=== PATIENT | female | born 1960 | race Caucasian/White ===

== ENCOUNTER 2025-01-25 13:33 | Outpatient (OUT) | payer MEDICARE, SELFPAY ==
--- OUTSIDE RECORDS SUMMARY | 2025-01-11 10:00 | XMS_ITS | Encounter Summary ---
Author Organization [facility] Address [address] [place] [address] Care Team Providers Care Security Consultant Name Role Phone Arturo Lizarraga MD Primary Care Provider [phone] Reason for Visit * Reason Comments Medicare Annual Wellness Visit Subsequen t Encounter Details Date Type Department Care Team (Late st Contact Info) Description 01/11/2025 10:00 AM EDT Office Visit [facility] [address] [facility] [address] [place] [id number] Lynn Brady PA [address] [facility] [address] [place] [address] Medicare annual wellness visit, subsequent (Primary Dx); ACP (advance care planning); Encounter for screening mammogram for malignant neoplasm of breast; Bruxism, sleep-related; Difficulty sleeping; Primary hypertension ; Calculus of gallbladder without cholecystitis without obstruction; Age-related osteoporosis without current pathological fracture ; Equinus contracture of right ankle; Morbid (severe) obesity due to excess calories (CMS-HCC); Vitamin D deficiency; Mild episode of recurrent major depressive disorder ; Hot flashes; Mixed hyperlipidemia ; Post-nasal drainage Social History Tobacco Use Types Packs/Day Years Used Date Smoking Tobacco: Never Smokeless Tobacco: Never Alcohol Use Standard Drinks/Week Comments Not Currently 0 (1 standard drink = 0.6 oz pur e alcohol) PHQ-2 Answer Date Recorded Patient Health Questionnaire-2 Score 4 01/11/2025 Comments Unknown Sex and Gender Information Value Date Recorded Sex Assigned at Not on file Legal Sex Female 8:35 PM EDT Gender Identity Not on file Sexual Orientation Not on file documented as of this encounter Last Filed Vital Signs Vital Sign Reading Time Taken Comments Blood Pressure 124/86 01/11/2025 10:04 AM EDT Pulse 68 01/11/2025 10:04 AM EDT Temperature - - Respiratory Rate 16 01/11/2025 10:04 AM EDT Oxygen Saturation 96% 01/11/2025 10:04 AM EDT Inhaled Oxygen Concentration - - Weight 97.5 kg (215 lb) 01/11/2025 10:04 AM EDT Height 163.8 cm (5' 4.5 ) 01/11/2025 10:04 AM ED T Body Mass Index 36.33 01/11/2025 10:04 AM EDT documented in this encounter Functional Status * Over the past 2 weeks, how often have you been bothered by any of the following problems? Question Answer Date of Assessment Author Little interest or pleasure in doing things More than half the days 01/11/2025 9:00 AM MICAHT Marylu Viveros LPN Feeling down, depressed, or hopeless More than half the days 01/11/2025 9:00 AM EDT Marylu Viveors LPN Patient Health Questionnaire-2 Score 4 01/11/2025 9:00 AM EDT Marylu Viveros LPN * Question Answer Date of Assessment Author Trouble falling or staying asleep, or sleeping too much Nearly every day 01/11/2025 9:00 AM EDT Marylu Viveros LP N Feeling tired or having little energy Not at all 01/11/2025 9:00 AM EDT Marylu Viveros LP N Poor appetite or overeating More than half the days 01/11/2025 9:00 AM EDT Marylu Viveros LPN Feeling bad about yourself - or that you are a failure or have let yourself or your family down Nearly every day 01/11/2025 9:00 AM EDT Marylu Viveros LP N Trouble concentrating on things, such as reading the newspaper or watching television Not at all 01/11/2025 9:00 AM EDT Marylu Viveros LP N Moving or speaking so slowly that other people could have noticed? Or the opposite - being so fidgety or restless that you have been moving around a lot more than usual. Not at all 01/11/2025 9:00 AM MICAHT Marylu Viveros LP N Thoughts that you would be better off or hurting yourself in some way Not at all 01/11/2025 9:00 AM Marylu Haney L PN Patient Health Questionnaire-9 Score 12 01/11/2025 9:00 AM EDT Marylu Viveros LPN documented as of this encounter Progress Notes * SHANNON Fernandez - 01/11/2025 10:00 AM EDT Images from the original note were not included. Subjective Patient ID: Nicolette Duran is a 64 y.o. female who presents for Medicare Annual Wellness Visit Subsequent. Leaving for vacation after her appointment today. Headed to [place], used to live there. States especially at night, when she swallows there is something there. Not difficult to swallow.No cough. Admits to some PND. Occasional ear discomfort. Not sure if it is phlegm. Started about a week ago. Medicare Wellness Over the past 2 weeks, how often have you been bothered by any of the following problems? Little interest or pleasure in doing things: More than half the days Feeling down, depressed, or hopeless: More than half the days Patient Health Questionnaire-2 Score: 4 Over the past 2 weeks, how often have you been bothered by any of the following problems? Trouble falling or staying asleep, or sleeping too much: Nearly every day Feeling tired or having little energy: Not at all Poor appetite or overeating: More than half the days Feeling bad about yourself - or that you are a failure or have let yourself or your family down: Nearly every day Trouble concentrating on things, such as reading the newspaper or watching television: Not at all Moving or speaking so slowly that other people could have noticed? Or the opposite - being so fidgety or restless that you have been moving around a lot more than usual.: Not at all Thoughts that you would be better off or hurting yourself in some way: Not at all Patient Health Questionnaire-9 Score: 12 Rogel Fall Risk History of Falling, Immediate or Within 3 Months: No Health Risk Assessment Form Do you need help eating, bathing, using the toilet, dressing, or getting around your home?: No Can you prepare your own meals?: Yes Can you do your own housework without help?: Yes Can you shop for groceries or clothes without help?: Yes Do you exercise for about 20 minutes 3 or more days a week?: No How confident are you that you can control and manage most of your health problems?: Very confident Can you mange your money, credit cards and accounts, pay bills and taxes?: Yes Vision Screening: Yes, no gross abnormalities Hearing Screening: Yes, no gross abnormalities Cognitive Screening Self Assessment: No overt cognitive deficiency is apparent by direct observation Three Word Registration: Banana, [place], Chair Clock Drawing: Normal Clock - 2 Three Word Recall: 2/3 words correct - 2 Total Score (0-5 Points): 4 Pain Assessment Pain Score: 0 - No pain Advance Care Planning Do you have a living will?: Yes Do you have a medical power of city attorney?: Yes Current Outpatient Medications on File Prior to Visit Medication Sig Dispense Refill atorvastatin (Lipitor) 10 MG tablet Take 1 tablet (10 mg) by mouth Daily 100 tablet 3 buPROPion XL (Wellbutrin XL) 300 MG 24 hr tablet TAKE 1 TABLET BY MOUTH IN THE MORNING. DO NOT CRUSH, CHEW OR SPLIT 100 tablet 3 cetirizine (ZyrTEC) 10 MG tablet Take 10 mg by mouth Daily PRN cholecalciferol (EQL Vitamin D3) 50 MCG (2000 UT) capsule Take 1 capsule (50 mcg) by mouth Daily 100 capsule 3 lisinopril 10 MG tablet Take 1 tablet (10 mg) by mouth Daily 100 tablet 3 tolnaftate (Tinactin) 1 % external solution Apply 1 application topically in the morning and 1 application before bedtime. No current facility-administered medications on file prior to visit. I have reviewed and reconciled the history and medication list with the patient today. Allergies Allergen Reactions Bactrim [Sulfamethoxazole-Trimethoprim] Rash Social History Tobacco Use Smoking status: Never Smokeless tobacco: Never Vaping Use Vaping status: Never Used Substance Use Topics Alcohol use: Not Currently Drug use: Never No family history on file. Past Medical History: Diagnosis Date Depression Hypertension History reviewed. No pertinent surgical history. Visit Vitals BP 124/86 Pulse 68 Resp 16 Ht 5' 4.5 Wt 215 lb SpO2 96% BMI 36.33 kg/m?? Smoking Status Never BSA 2.11 m?? Review of Systems Constitutional: Negative for chills, fatigue and fever. HENT: Positive for ear pain (Occasional) and postnasal drip. Negative for congestion, rhinorrhea, sore throat, trouble swallowing and voice change. Eyes: Negative for pain, discharge and visual disturbance. Respiratory: Negative for cough, shortness of breath and wheezing. Cardiovascular: Negative for chest pain, palpitations and leg swelling. Gastrointestinal: Negative for abdominal pain, constipation, diarrhea, nausea and vomiting. Genitourinary: Negative for difficulty urinating, dysuria and frequency. Musculoskeletal: Negative for arthralgias and back pain. Skin: Negative for rash. Neurological: Negative for dizziness and numbness. Psychiatric/Behavioral: Negative for sleep disturbance. The patient is not nervous/anxious. Objective Physical Exam Constitutional: General: She is not in acute distress. Appearance: She is well-developed. She is obese. HENT: Head: Normocephalic and atraumatic. Right Ear: Tympanic membrane and ear canal normal. Left Ear: Ear canal normal. A middle ear effusion is present. Tympanic membrane is erythematous. Nose: Nose normal. Mouth/Throat: Mouth: Mucous membranes are moist. Pharynx: Postnasal drip (Clear) present. No posterior oropharyngeal erythema. Eyes: General: No scleral icterus. Extraocular Movements: Extraocular movements intact. Conjunctiva/sclera: Conjunctivae normal. Pupils: Pupils are equal, round, and reactive to light. Neck: Vascular: No carotid bruit. Cardiovascular: Rate and Rhythm: Normal rate and regular rhythm. Heart sounds: Normal heart sounds. No murmur heard. Pulmonary: Effort: Pulmonary effort is normal. No respiratory distress. Breath sounds: Normal breath sounds. No wheezing, rhonchi or rales. Abdominal: General: Bowel sounds are normal. There is no distension. Palpations: Abdomen is soft. Tenderness: There is no abdominal tenderness. There is no guarding. Musculoskeletal: General: No swelling or deformity. Normal range of motion. Cervical back: Normal range of motion and neck supple. No tenderness. Skin: General: Skin is warm and dry. Capillary Refill: Capillary refill takes less than 2 seconds. Findings: No rash. Neurological: General: No focal deficit present. Mental Status: She is alert and oriented to person, place, and time. Cranial Nerves: No cranial nerve deficit. Sensory: No sensory deficit. Motor: No weakness. Gait: Gait normal. Deep Tendon Reflexes: Reflexes normal. Psychiatric: Mood and Affect: Mood normal. Behavior: Behavior normal. Thought Content: Thought content normal. Judgment: Judgment normal. Assessment & Plan 1. Medicare annual wellness visit, subsequent (Primary) Reviewed all relevant preventative screenings with the patient in detail. Medicare Wellness form completed and will be scanned into patient's chart. All needed testing was ordered. Will continue withyearly Medicare Wellness exams. - CBC and differential - Comprehensive metabolic panel - Lipid panel - Vitamin D 25 hydroxy Total 2. ACP (advance care planning) Patient willing to discuss ACP. Pt has Living Will and DPOA in place. 3. Encounter for screening mammogram for malignant neoplasm of breast Provided patient with an order for an updated Mammogram. If results are negative/normal, will plan to continue with routine yearly screenings. - Bilateral screening mammogram with tomosynthesis; Future 4. Bruxism, sleep-related This is a chronic medical condition that is stable since last assessment. Continue routine dental exams. 5. Difficulty sleeping This is a chronic medical condition that is stable since last assessment. No specific treatment atthis time. 6. Primary hypertension Patient's blood pressure is currently well controlled. Continue with current medications and I willcontinue to monitor. - CBC and differential - Comprehensive metabolic panel - Lipid panel 7. Calculus of gallbladder without cholecystitis without obstruction No current symptoms at this time. Will continue to monitor. 8. Age-related osteoporosis without current pathological fracture This is a chronic medical condition that is stable since last assessment. No changes in treatment are suggested at this time. Continue Vitamin D supplement. - Vitamin D 25 hydroxy Total 9. Equinus contracture of right ankle The patient is seeing a outside medical sales representative for this condition, treatment is deferred to that specialist. Correspondence from that specialist and any available testing were reviewed during today's visit. 10. Morbid (severe) obesity due to excess calories ([facility]) Patient has lost 3 pounds since her last appointment. Encouraged portion control, decrease simple sugars and carbohydrates, gradually increase activity level. Aim for continued gradual steady weight loss. 11. Vitamin D deficiency This is a chronic medical condition that is stable since last assessment. No changes in treatment are suggested at this time. Continue Vitamin D supplement. - Vitamin D 25 hydroxy Total 12. Mild episode of recurrent major depressive disorder This is a chronic medical condition that is stable since last assessment. No changes in treatment are suggested at this time. Continue Bupropion as prescribed. 13. Hot flashes This is a chronic medical condition that is stable since last assessment. No specific treatments atthis time. 14. Mixed hyperlipidemia This is a chronic medical condition that is stable since last assessment. No changes in treatment are suggested at this time. Continue Atorvastatin as prescribed. - CBC and differential - Comprehensive metabolic panel - Lipid panel 15. Post-nasal drainage Will have her start OTC nasal spray (non-decongestant) once a day for the next 1-2 weeks. Contact office if no improvement with the above. Follow up in about 6 months (around 07/14/2025) for Hypertension. Lynn MARTINEZ PAJarekC documented in this encounter Plan of Treatment Upcoming Encounters Date Type Department Care Team (Late st Contact Info) Description 07/17/2025 8:00 AM EST Office Visit [facility] [address] [facility] [address] [place] [address] Lynn Brady PA [address] [place] [address] [place] [address] Scheduled Orders Name Type Priority Associated Diagnoses Orde r Schedule Bilateral screening mammogram with tomosynthesis Imaging Routine Encounter for screening mammogram for malignant neoplasm of breast Expected: 02/14/2025, Expires: 03/14/2026 documented as of this encounter Procedures Procedure Name Priority Date/Time Associated Diagnosis Comments VITAMIN D 25 HYDROXY TOTAL Routine 01/11/2025 10:42 AM EDT Medicare annual wellness visit, subsequent Age-related osteoporosis without current pathological fracture Vitamin D deficiency CBC (INCLUDES DIFF/PLT) Routine 01/11/2025 10:42 AM EDT Medicare annual wellness visit, subsequent Primary hypertension Mixed hyperlipidemia LIPID PANEL Routine 01/11/2025 10:42 AM EDT Medicare annual wellness visit, subsequent Primary hypertension Mixed hyperlipidemia COMPREHENSIVE METABOLIC PANEL Routine 01/11/2025 10:42 AM EDT Medicare annual wellness visit, subsequent Primary hypertension Mixed hyperlipidemia documented in this encounter Results * Vitamin D 25 hydroxy Total (01/11/2025 10:42 AM EDT) VITAMIN D,25-OH,TOTAL,IA 39 30 - 100 ng/mL [facility] Comment: Vitamin D Status 25-OH Vitamin D: Deficiency: <20 ng/mL Insufficiency: 20 - 29 ng/mL Optimal: > or = 30 ng/mL For 25-OH Vitamin D testing on patients on D2-supplementation and patients for whom quantitation of D2 and D3 fractions is required, the QuestAssureD(TM) 25-OH VIT D, (D2,D3), LC/MS/MS is recommended: order code 59806 (patients >2yrs). See Note 1 Note 1 For additional information, please refer to http://education.HEXIO/faq/UIA499 (This link is being provided for informational/ educational purposes only.) Blood Venous blood specimen / Unknown 01/11/2025 10:42 AM EDT 01/11/2025 10:43 AM EDT Narrative [facility] - 01/12/2025 4:21 AM EDT FASTING:YES FASTING: YES Resulting Agency Comment Performing Organization Information Site ID: QPT Name: [employer] [facility] Address: [address] [place] [address], [address] [place] [phone] Director: Keaton Roy MD us Lynn [facility] ORDERABLES Final Res ult [facility] * Lipid panel (01/11/2025 10:42 AM EDT) CHOLESTEROL, TOTAL 168 <200 mg/dL [facility] HDL CHOLESTEROL 59 > OR = 50 mg/dL [facility] TRIGLYCERIDES 135 <150 mg/dL [facility] LDL CHOLESTEROL 86 mg/dL (calc) [facility] Comment: Reference range: <100 Desirable range <100 mg/dL for primary prevention; <70 mg/dL for patients with CHD or diabetic patients with > or = 2 CHD risk factors. LDL-C is now calculated using the Wolf calculation, which is a validated novel method providing better accuracy than the Friedewald equation in the estimation of LDL-C. Rodríguez ARANDA et al. PETRA. 2013;310(19): 0896-3627 (http://education.HEXIO/faq/TZU587) CHOL/HDLC RATIO 2.8 <5.0 (calc) [facility] NON HDL CHOLESTEROL 109 <130 mg/dL (calc) [facility] Comment: For patients with diabetes plus 1 major ASCVD risk factor, treating to a non-HDL-C goal of <100 mg/dL (LDL-C of <70 mg/dL) is considered a therapeutic option. Blood Venous blood specimen / Unknown 01/11/2025 10:42 AM EDT 01/11/2025 10:43 AM EDT Narrative [facility] - 01/12/2025 4:21 AM EDT FASTING:YES FASTING: YES Resulting Agency Comment Performing Organization Information Site ID: QPT Name: [employer] [facility] Address: [address] [place] [address], [address] [place] [phone] Director: Keaton Roy MD Lynn [facility] BLO[facility] ORDERABLES Final Res ult [facility] * Comprehensive metabolic panel (01/11/2025 10:42 AM EDT) [facility] Glucose 87 65 - 99 mg/dL [facility] Comment: Fasting reference interval BUN 16 7 - 25 mg/dL [facility] Creatinine 0.90 0.50 - 1.05 mg/dL [facility] EGFR 71 > OR = 60 mL/min/1. 73m2 [facility] BUN/CREATININE RATIO SEE NOTE: 6 - 22 (calc) [facility] Comment: Not Reported: BUN and Creatinine are within reference range. Sodium 141 135 - 146 mmol/L [facility] Potassium, Bld 4.9 3.5 - 5.3 mmol/L [facility] Chloride 104 98 - 110 mmol/L [facility] Carbon Dioxide 28 20 - 32 mmol/L [facility] Calcium 10.2 8.6 - 10.4 mg/dL [facility] PROTEIN, TOTAL 6.7 6.1 - 8.1 g/dL [facility] ALBUMIN 4.6 3.6 - 5.1 g/dL [facility] GLOBULIN 2.1 1.9 - 3.7 g/dL (calc) [facility] ALBUMIN/GLOBULIN RATIO 2.2 1.0 - 2.5 (calc) [facility] BILIRUBIN, TOTAL 0.9 0.2 - 1.2 mg/dL [facility] ALKALINE PHOSPHATASE 57 37 - 153 U/L [facility] AST 20 10 - 35 U/L [facility] ALT 17 6 - 29 U/L [facility] Blood Venous blood specimen / Unknown 01/11/2025 10:42 AM EDT 01/11/2025 10:43 AM EDT Narrative [facility] - 01/12/2025 4:21 AM EDT FASTING:YES FASTING: YES Resulting Agency Comment Performing Organization Information Site ID: QPT Name: [employer] [facility] Address: [address] [place] [address], [address] [place] [phone] Director: Keaton Roy MD us Lynn [facility] BLO[facility] ORDERABLES Final Res ult [facility] * (ABNORMAL) CBC and differential (01/11/2025 10:42 AM EDT) WHITE BLOOD CELL COUNT 5.7 3.8 - 10.8 Thousand/u L [facility] RED BLOOD CELL COUNT 4.48 3.80 - 5.10 Million/uL [facility] HEMOGLOBIN 14.5 11.7 - 15.5 g/dL [facility] HEMATOCRIT 45.7(H) 35.0 - 45.0 % [facility] MCV 102.0(H) 80.0 - 100.0 fL [facility] MCH 32.4 27.0 - 33.0 pg [facility] MCHC 31.7(L) 32.0 - 36.0 g/dL [facility] Comment: For adults, a slight decrease in the calculated MCHC value (in the range of 30 to 32 g/dL) is most likely not clinically significant; however, it should be interpreted with caution in correlation with other red cell parameters and the patient's clinical condition. RDW 13.3 11.0 - 15.0 % [facility] PLATELET COUNT 245 140 - 400 Thousand/u L [facility] MPV 9.2 7.5 - 12.5 fL [facility] ABSOLUTE NEUTROPHILS 3,158 1,500 - 7,800 cells/uL [facility] ABSOLUTE LYMPHOCYTES 1,949 850 - 3,900 cells/uL [facility] ABSOLUTE MONOCYTES 490 200 - 950 cells/uL [facility] ABSOLUTE EOSINOPHILS 63 15 - 500 cells/uL [facility] ABSOLUTE BASOPHILS 40 0 - 200 cells/uL [facility] NEUTROPHILS 55.4 % [facility] LYMPHOCYTES 34.2 % [facility] MONOCYTES 8.6 % [facility] EOSINOPHILS 1.1 % [facility] BASOPHILS 0.7 % [facility] Blood Venous blood specimen / Unknown 01/11/2025 10:42 AM EDT 01/11/2025 10:43 AM EDT Narrative [facility] - 01/12/2025 4:21 AM EDT FASTING:YES FASTING: YES Resulting Agency Comment Performing Organization Information Site ID: QPT Name: [employer] [facility] Address: [address] [place] [address], [address] [place] [phone] Director: Keaton Roy MD us Lynn [facility] BLOOD ORDERABLES Final Res ult Performing Organization Address City/State/[facility] Co de Phone Number [facility] documented in this encounter Visit Diagnoses Diagnosis Medicare annual wellness visit, subsequent- Primary ACP (advance care planning) Other specified counseling Encounter for screening mammogram for malignant neoplasm of breast Bruxism, sleep-related Difficulty sleeping Unspecified sleep disturbance Primary hypertension Unspecified essential hypertension Calculus of gallbladder without cholecystitis without obstruction Age-related osteoporosis without current pathological fracture Equinus contracture of right ankle Morbid (severe) obesity due to excess calories ([facility]) Vitamin D deficiency Mild episode of recurrent major depressive disorder Hot flashes Mixed hyperlipidemia Mixed hyperlipidemia Post-nasal drainage Other diseases of nasal cavity and sinuses documented in this encounter Additional Health Concerns Assessment Noted Time PHQ-9 Depression Total Score: 12 01/11/ 025 9:00 AM EDT documented as of this encounter Care Teams Security Consultant Relationship Specialty Start Date End Date Arturo Lizarraga MD [address] [place] [address] PCP - General Internal Medicine 12/23/23 documented as of this encounter
--- OUTSIDE RECORDS SUMMARY | 2025-01-24 11:30 | XMS_ITS | Encounter Summary ---
Author Organization [facility] Address [address] [place] [address] Care Team Providers Care Field Agronomist Name Role Phone Arturo Lizarraga MD Primary Care Provider [phone] Reason for Visit * Reason Comments discuss labs Would like to disc s lab results - she was not happy with the last blood draw she had here. Encounter Details Date Type Department Care Team (Late st Contact Info) Description 01/24/2025 11:30 AM EDT Office Visit [facility] [address] [facility] [address] [place] [address] Lynn Brady PA 112 [facility] [address] [place] [address] Abnormal CBC (Primary Dx); Knee strain, right, initial encounter Social History Tobacco Use Types Packs/Day Years Used Date Smoking Tobacco: Never Smokeless Tobacco: Never Alcohol Use Standard Drinks/Week Comments Not Currently 0 (1 standard drink = 0.6 oz pur e alcohol) PHQ-2 Answer Date Recorded Patient Health Questionnaire-2 Score 0 01/24/2025 Comments Unknown Sex and Gender Information Value Date Recorded Sex Assigned at Not on file Legal Sex Female 8:35 PM EDT Gender Identity Not on file Sexual Orientation Not on file documented as of this encounter Last Filed Vital Signs Vital Sign Reading Time Taken Comments Blood Pressure 124/86 01/24/2025 11:35 AM EDT Pulse 76 01/24/2025 11:35 AM EDT Temperature - - Respiratory Rate 16 01/24/2025 11:35 AM EDT Oxygen Saturation 98% 01/24/2025 11:35 AM EDT Inhaled Oxygen Concentration - - Weight 98.2 kg (216 lb 6.4 oz) 01/24/2025 11:35 AM EDT Height 163.8 cm (5' 4.5 ) 01/24/2025 11:35 AM ED T Body Mass Index 36.57 01/24/2025 11:35 AM EDT documented in this encounter Functional Status * Over the past 2 weeks, how often have you been bothered by any of the following problems? Question Answer Date of Assessment Author Little interest or pleasure in doing things Not at all 01/24/2025 11:28 AM EDT Marylu Viveros L PN Feeling down, depressed, or hopeless Not at all 01/24/2025 11:28 AM EDT Marylu Viveros L PN Patient Health Questionnaire -2 Score 0 01/24/2025 11:28 AM EDT Marylu Viveros L PN documented as of this encounter Progress Notes * SHANNON Fernandez - 01/24/2025 11:30 AM EDT Images from the original note were not included. HPI discuss labs Additional comments: Would like to discuss lab results - she was not happy with the last blood drawshe had here. Last edited by Marylu Viveros LPN on 01/24/2025 11:34 AM. Subjective Patient ID: Nicolette Duran is a 64 y.o. female who presents for knee pain. Nicolette is present today for evaluation of knee pain. Admits it is her right knee and it has been bothering her for 1 week. She was on vacation and they just got a new vehicle so she is not sure if that is what aggravated her knee. Describes pain as wrenching , hurts is she turns her foot a certain way. Rates pain as 5-7/10. No pain when she is sitting, pain is only when she is walking or turns it a certain way. Wakes her up at night. Tried ice and Aspercreme with some relief. Over the past 2 weeks, how often have you been bothered by any of the following problems? Little interest or pleasure in doing things: Not at all (currently on medication) Feeling down, depressed, or hopeless: Not at all (currently on medication) Patient Health Questionnaire-2 Score: 0 Current Outpatient Medications on File Prior to [...] surgical history. Visit Vitals BP 124/86 Pulse 76 Resp 16 Ht 5' 4.5 Wt 216 lb 6.4 oz SpO2 98% BMI 36.57 kg/m?? Smoking Status Never BSA 2.11 m?? Review of Systems Objective Physical Exam Constitutional: General: She is not in acute distress. Appearance: She is well-developed. She is obese. HENT: Head: Normocephalic and atraumatic. Eyes: General: No scleral icterus. Conjunctiva/sclera: Conjunctivae normal. Cardiovascular: Rate and Rhythm: Normal rate and regular rhythm. Heart sounds: Normal heart sounds. No murmur heard. Pulmonary: Effort: Pulmonary effort is normal. No respiratory distress. Breath sounds: Normal breath sounds. No wheezing, rhonchi or rales. Musculoskeletal: Right knee: Swelling (Mild lower leg), effusion (Mild of joint) and crepitus (Severe) present. No erythema or ecchymosis. Decreased range of motion. Tenderness present over the medial joint line and lateral joint line. No patellar tendon tenderness. No LCL laxity, MCL laxity, ACL laxity or PCL laxity. Instability Tests: Medial Genet test negative and lateral Genet test negative. Comments: Testing was mildly limited due to patient guarding, but testing did not show any signs ofinternal derangement. Extension of knee to 20 degrees, flexion to 90, ROM with pain. Skin: General: Skin is warm and dry. Neurological: General: No focal deficit present. Mental Status: She is alert and oriented to person, place, and time. Gait: Gait abnormal (Antalgic, using a rolling walker for ambulation). Psychiatric: Mood and Affect: Mood normal. Behavior: Behavior normal. Assessment/Plan Diagnoses and all orders for this visit: Abnormal CBC Discussed the results in detail with the patient. Advised the Folate and Vitamin B12 testing are to r/o deficiencies that can cause changes in her RBC's shape. She is agreeable to proceeding with the labs, provided her with order as she would like to have these done at [facility]. Knee strain, right, initial encounter - predniSONE (Deltasone) 10 MG tablet; Take 1 tablet (10 mg) by mouth in the morning and 1 tablet (10 mg) at noon. Do all this for 5 days. Take with breakfast and with lunch. She is welcome to use a knee brace for support as her knee heals. Prednisone as prescribed, with food, no other oral anti-inflammatories while on the steroid. Can continue ice, 20 min on 20 min off as needed, not directly on the skin. Recommend Diclofenac Gel to knee up to four times a day as needed. Advised knee was stable on exam today, however, if pain persists, x-rays, then possibly PT or MRImight be indicated for further evaluation. Follow up for Appointment As Scheduled. documented in this encounter Plan of Treatment Upcoming Encounters Date Type Department Care Team (Late st Contact Info) Description 07/17/2025 8:00 AM EST Office Visit [facility] [address] [place] [address] Lynn Brady PA 112 [facility] [address] [place] [address] documented as of this encounter Visit Diagnoses Diagnosis Abnormal CBC- Primary Other abnormal blood chemistry Knee strain, right, initial encounter documented in this encounter Additional Health Concerns Assessment Noted Time PHQ-9 Depression Total Score: 12 025 9:00 AM EDT documented as of this encounter Care Teams Field Agronomist Relationship Specialty Start Date End Date Arturo Lizarraga MD 112 [facility] [address] [place] [address] PCP - General Internal Medicine 12/23/23 documented as of this encounter
--- OUTSIDE RECORDS SUMMARY | 2025-01-25 13:48 | XMS_ITS | Clinical Summary ---
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 Active atorvastatin (Lipitor) 10 MG tabletIndication s:Hypertension, unspecified type Take 1 tablet (10 mg) by mouth Daily 100 tablet 3 5 Active lisinopril 10 MG tabletIndication s:Hypertension, unspecified type Take 1 tablet (10 mg) by mouth Daily 100 tablet 3 5 Active buPROPion XL (Wellbutrin XL) 300 MG 24 hr tabletIndication s:Moderate episode of recurrent major depressive disorder (HCC) TAKE 1 TABLET BY MOUTH IN THE MORNING. DO NOT CRUSH, CHEW OR SPLIT 100 tablet 3 5 Active predniSONE (Deltasone) 10 MG tabletIndication s:Knee strain, right, initial encounter Take 1 tablet (10 mg) by mouth in the morning and 1 tablet (10 mg) at noon. Do all this for 5 days. Take with breakfast and with lunch. 10 tablet 5 01/30/20 Active Active Problems Problem Noted Date Diagnosed Date Calculus of gallbladder with out cholecystitis without obstruction 12/14/2024 Difficulty sleeping 08/30/2024 Hot flashes 02/03/2024 Vitamin D deficiency 12/28/2023 Mixed hyperlipidemia 12/23/2023 Age related osteoporosis 07/03/2023 Bruxism, sleep-related 07/03/2023 Depression 07/03/2023 Equinus contracture of right ankle 07/03/2023 HTN (hypertension) 07/03/2023 Morbid (severe) obesity due to excess calories 0 07/03/2023 Resolved Problems Problem Noted Date Diagnosed Date Resolved Date BMI 39.0-39.9,adult 12/23/2023 02/03/20 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 Encounters Date Type Department Care Team Description 01/24/2025 11:30 AM EDT Office Visit [facility] [address] [facility] [address] [place] [address] Lynn Brady PA Abnormal CBC (Primary Dx); Knee strain, right, initial encounter 01/24/2025 Bamboo flowsheet [facility] [address] [facility] [address] [place] [address] Lynn Brady PA 01/24/2025 Travel 01/13/2025 Results [facility] [address] [facility] [address] [place] [address] Lynn Brady PA Abnormal CBC (Primary Dx) 01/12/2025 Abstract [facility] [address] [facility] [address] [place] [address] Arturo Lizarraga MD 01/11/2025 10:00 AM EDT Office Visit [facility] [address] [facility] [address] [place] [address] Lynn Brady PA Medicare annual wellness visit, subsequent (Primary Dx); ACP (advance care planning); Encounter for screening mammogram for malignant neoplasm of breast; Bruxism, sleep-related; Difficulty sleeping; Primary hypertension ; Calculus of gallbladder without cholecystitis without obstruction; Age-related osteoporosis without current pathological fracture ; Equinus contracture of right ankle; Morbid (severe) obesity due to excess calories ([facility]-HCC); Vitamin D deficiency; Mild episode of recurrent major depressive disorder ; Hot flashes; Mixed hyperlipidemia ; Post-nasal drainage 01/11/2025 Bamboo flowsheet [facility] [address] [facility] [address] [place] [address] Lynn Brady PA 01/11/2025 Travel 12/14/2024 1:30 PM EDT Ancillary Procedure [facility] [address] [place] [address] Microscopic hematuria; Acute left-sided low back pain without sciatica 12/14/2024 Results Follow-Up [facility] [address] [facility] [address] [place] [address] Lynn Brady PA 12/14/2024 Travel 12/02/2024 Telephone [facility] [address] [facility] [address] [place] [address] Lynn Brady PA 12/02/2024 Abstract [facility] [address] [facility] [address] [place] [address] Arturo Lizarraga MD 12/01/2024 11:30 AM EDT Office Visit [facility] [address] [facility] [address] [place] [address] Lynn Brady, PA Acute left-sided low back pain without sciatica (Primary Dx); Microscopic hematuria; Primary hypertension ; Difficulty sleeping 12/01/2024 Bamboo flowsheet [facility] [address] [facility] [address] [place] [address] Lynn Brady PA 12/01/2024 Travel 11/07/2024 Refill [facility] [address] [facility] [address] [place] [address] Lynn Brady PA Moderate episode of recurrent major depressive disorder (HCC) from Last 3 Months Family History Relation Name Status Comments Father Mother Social History Tobacco Use Types Packs/Day Years Used Date Smoking Tobacco: Never Smokeless Tobacco: Never Tobacco Cessation:Counseling Given: Not Answered Alcohol Use Standard Drinks/Week Comments Not Currently 0 (1 standard drink = 0.6 oz pur e alcohol) PHQ-2 Answer Date Recorded Patient Health Questionnaire-2 Score 0 01/24/2025 Comments Unknown Sex and Gender Information Value Date Recorded Sex Assigned at Not on file Legal Sex Female 8:35 PM EDT Gender Identity Not on file Sexual Orientation Not on file Last Filed Vital Signs Vital Sign Reading Time Taken Comments Blood Pressure 124/86 01/24/2025 11:35 AM EDT Pulse 76 01/24/2025 11:35 AM EDT Temperature 36.6 C (97.8 F) 01/14/2024 9:57 AM EDT Respiratory Rate 16 01/24/2025 11:35 AM EDT Oxygen Saturation 98% 01/24/2025 11:35 AM EDT Inhaled Oxygen Concentration - - Weight 98.2 kg (216 lb 6.4 oz) 01/24/2025 11:35 AM EDT Height 163.8 cm (5' 4.5 ) 01/24/2025 11:35 AM ED T Body Mass Index 36.57 01/24/2025 11:35 AM EDT Plan of Treatment Upcoming Encounters Date Type Department Care Team (Late st Contact Info) Description 07/17/2025 8:00 AM EST Office Visit [facility] [address] [facility] [address] [place] [address] Lynn Brady PA [address] [facility] [address] [place] [address] Health Maintenance Due Date Last Done Comments CT Colonography 1958 FIT-DNA 1958 FIT 1958 FOBT 1960 Sigmoidoscopy 1960 Pneumococcal Vaccine: 65+ Ye ars (1 of 1 - PCV) 2008 Mammogram 02/14/2025 02/15/2024, 07/24, 06/07/2020 Influenza Vaccine (#1) 2025 Medicare Annual Wellness (AWV) 01/11/2026 01/11/2025 , 12/23/2023 Colonoscopy 12/01/2028 12/01/2018 Colorectal Cancer Screening 12/01/2028 Cervical Cancer Screening Discontinued Pap Smear Discontinued 06/07/2020 HPV/Cotest Discontinued Procedures Procedure Name Priority Date/Time Associated Diagnosis Comments VITAMIN D 25 HYDROXY TOTAL Routine 01/11/2025 10:42 AM EDT Medicare annual wellness visit, subsequent Age-related osteoporosis without current pathological fracture Vitamin D deficiency LIPID PANEL Routine 01/11/2025 10:42 AM EDT Medicare annual wellness visit, subsequent Primary hypertension Mixed hyperlipidemia COMPREHENSIVE METABOLIC PANEL Routine 01/11/2025 10:42 AM EDT Medicare annual wellness visit, subsequent Primary hypertension Mixed hyperlipidemia CBC (INCLUDES DIFF/PLT) Routine 01/11/2025 10:42 AM EDT Medicare annual wellness visit, subsequent Primary hypertension Mixed hyperlipidemia CT ABDOMEN PELVIS WO IV CONTRAST Routine 12/14/2024 2:32 PM EDT Microscopic hematuria Acute left-sided low back pain without sciatica POCT URINALYSIS DIPSTICK Routine 12/01/2024 12:03 PM EDT Acute left-sided low back pain without sciatica URINARY TRACT INFECTION (HTRX) Routine 12/01/2024 12:01 PM EDT Acute left-sided low back pain without sciatica Microscopic hematuria BI MAMMOGRAM SCREENING TOMOSYNTHESIS BILATERAL Routine 02/15/2024 10:38 AM EDT Encounter for screening mammogram for malignant neoplasm of breast THINPREP TIS PAP AND HPV MRNA E6/E7 REFLEX HPV 16,18/45 ([id number]) Routine 06/07/2020 COLONOSCOPY Routine 12/01/2018 12:00 PM EDT from Last 3 Months or Most Recently Relevant to Health Maintenance Results * Vitamin D 25 hydroxy Total [...] D, (D2,D3), LC/MS/MS is recommended: order code 43474 (patients >2yrs). See Note 1 Note 1 For additional information, please refer to http://education.[employer]/faq/XRL009 (This link is being provided for informational/ educational purposes only.) Blood Venous blood specimen / Unknown 01/11/2025 10:42 AM EDT 01/11/2025 10:43 AM EDT Narrative [facility] - 01/12/2025 4:21 AM EDT FASTING:YES FASTING: YES Resulting Agency Comment Performing Organization Information Site ID: QPT Name: [facility] Address: [address] [place] [address], [address] [place] [phone] Director: Keaton Roy MD us Lynn ORTEGA [...] Performing Organization Information Site ID: QPT Name: [facility] Address: [address] [place] [address], [address] [place] [phone] Director: Keaton Roy MD us Lynn [facility] LAB BLOOD ORDERABLES Final Res ult [facility] * Lipid panel (01/11/2025 10:42 AM EDT) [facility] Signature CHOLESTEROL, TOTAL 168 <200 mg/dL [facility] HDL [...] LDL-C. Rodríguez ARANDA et al. PETRA. 2013;310(19): 7353-2680 (http://education.[employer]/faq/HBB486) CHOL/HDLC RATIO 2.8 <5.0 (calc) [facility] NON [...] Performing Organization Information Site ID: QPT Name: [facility] Address: [address] [place] [address], [address] [place] [phone] Director: Keaton Roy MD Lynn [facility] BLOOD ORDERABLES Final Res ult [facility] * Comprehensive metabolic panel (01/11/2025 10:42 AM EDT) Pathologist [facility] Glucose 87 65 - 99 mg/dL [facility] [...] Performing Organization Information Site ID: QPT Name: [facility] Address: [address] [place] [address], [address] [place] [phone] Director: Keaton Ryo MD us Lynn [facility] BLOOD ORDERABLES Final Res ult [facility] * CT abdomen pelvis wo IV contrast (12/14/2024 2:32 PM EDT) Anatomical Region Laterality Modality Body, Pelvis, Abdomen Computed T omography 12/14/2024 2:50 PM EDT Impressions 12/14/2024 2:54 PM EDT No urinary tract calculus or hydronephrosis. Cholelithiasis without other CT evidence for acute cholecystitis. ELECTRONICALLY SIGNED BY: Arturo Aguilar MD Narrative 12/14/2024 2:54 PM EDT HISTORY: Microscopic hematuria. Concern for kidney stones. TECHNIQUE: Non-IV contrast imaging of the abdomen and pelvis was performed using standard technique, scanning from just above the dome of the diaphragm to the symphysis pubis. Unenhanced imaging is limited for the evaluation of some intra-abdominal and pelvic pathology. All CT scans at this facility use dose modulation, iterative reconstruction, and/or weight based dosing when appropriate to reduce radiation dose to as low as reasonably achievable. COMPARISON: None available. RESULT: Abdomen / Pelvis: Liver: Unremarkable. Biliary: Around 2.0 cm calcified gallstone. Gallbladder otherwise unremarkable. No bile duct dilation. Pancreas: Unremarkable. Spleen: No splenomegaly. Adrenals: No mass. Kidneys: No urinary tract calculus or hydronephrosis. Minimal symmetric perinephric stranding. No suspicious lesions in the unenhanced kidneys. GI Tract: No bowel dilation. Appendix unremarkable. Diverticulosis without diverticulitis. Lymph Nodes: No lymphadenopathy. Mesentery/peritoneum/retroperitoneum: No ascites or mass. Vasculature: Mild arterial atherosclerotic disease without aneurysm. Pelvis: No significant pelvic free fluid. Small calcified uterine fibroid. Bladder decompressed. Trace periumbilical dehiscence containing fat. Bones/Soft Tissues: No acute osseous findings. Multilevel degenerative changes imaged spine. Dextroscoliosis. Lower thorax: Unremarkable. Procedure Note Arturo Aguilar MD - 12/14/2024 HISTORY: Microscopic hematuria. Concern for kidney stones. TECHNIQUE: Non-IV contrast imaging of the abdomen and pelvis was performedusing standard technique, scanning from just above the dome of thediaphragm to the symphysis pubis. Unenhanced imaging is limited for theevaluation of some intra-abdominal and pelvic pathology. All CT scans at this facility use dose modulation, iterativereconstruction, and/or weight based dosing when appropriate to reduceradiation dose to as low as reasonably achievable. COMPARISON: None available. RESULT: Abdomen / Pelvis: Liver: Unremarkable. Biliary: Around 2.0 cm calcified gallstone. Gallbladder otherwiseunremarkable. No bile duct dilation. Pancreas: Unremarkable. Spleen: No splenomegaly. Adrenals: No mass. Kidneys: No urinary tract calculus or hydronephrosis. Minimal symmetricperinephric stranding. No suspicious lesions in the unenhanced kidneys. GI Tract: No bowel dilation. Appendix unremarkable. Diverticulosis withoutdiverticulitis. Lymph Nodes: No lymphadenopathy. Mesentery/peritoneum/retroperitoneum: No ascites or mass. Vasculature: Mild arterial atherosclerotic disease without aneurysm. Pelvis: No significant pelvic free fluid. Small calcified uterine fibroid.Bladder decompressed. Trace periumbilical dehiscence containing fat. Bones/Soft Tissues: No acute osseous findings. Multilevel degenerativechanges imaged spine. Dextroscoliosis. Lower thorax: Unremarkable. IMPRESSION: No urinary tract calculus or hydronephrosis. Cholelithiasis without other CT evidence for acute cholecystitis. ELECTRONICALLY SIGNED BY: Arturo Aguilar MD Lynn ORTEGA IMG CT PROCEDURES Final Result * (ABNORMAL) POCT Urinalysis dipstick (12/01/2024 12:03 PM EDT) Color, UA Straw Clarity, UA Clear Glucose, UA Negative Negative - 1999(110) ++++ mg/dL Bilirubin, UA Negative Negative - 4(70) +++ mg/dL Ketones, UA Negative Negative - 160(16) ++++ mg/dL Spec Grav, UA 1.030 1 - 1.03 Blood, UA Positive Negative - 50 Db/mcL pH, UA 5.0 5 - 9 Protein, UA Trace Negative - 1999(20) ++++ mg/dL Urobilinogen, UA 1.0 0.2 - 12 mg/dL Leukocytes, UA Negative Negative - 500+++ Eva/mcL Nitrite, UA Negative Negative - Positive Urine 12/01/2024 12:0 3 PM EDT Lynn ORTEGA POINT OF CARE TEST ENTER/EDIT ORDERABLES Final Result * URINARY TRACT INFECTION (HTRX) (12/01/2024 12:01 PM EDT) Pathologist [facility] ACINETOBACTER BAUMANII 0.000 19.961 - 24.689 ppm 12/02/2024 7:51 AM EDT [facility] ACINETOBACTER BAUMANII Not Detected 19.961 - 24.689 ppm 12/02/2024 7:51 AM EDT [facility] CITROBACTER FREUNDII 0.000 23.000 - 31.881 ppm 12/02/2024 7:51 AM EDT [facility] CITROBACTER FREUNDII Not Detected 23.000 - 31.881 ppm 12/02/2024 7:51 AM EDT [facility] ENTEROBACTER AEROGENES, CLOACAE 0.000 23.000 - 31.535 ppm 12/02/2024 7:51 AM EDT [facility] ENTEROBACTER AEROGENES, CLOACAE Not Detected 23.000 - 31.535 ppm 12/02/2024 7:51 AM EDT [facility] ENTEROCOCCUS FAECALIS, FAECIUM 0.000 26.000 - 31.575 ppm 12/02/2024 7:51 AM EDT [facility] ENTEROCOCCUS FAECALIS, FAECIUM Not Detected 26.000 - 31.575 ppm 12/02/2024 7:51 AM EDT [facility] ESCHERICHIA COLI 0.000 23.000 - 28.500 ppm 12/02/2024 7:51 AM EDT [facility] ESCHERICHIA COLI Not Detected 23.000 - 28.500 ppm 12/02/2024 7:51 AM EDT [facility] KLEBSIELLA PNEUMONIAE, OXYTOCA 0.000 23.000 - 30.500 ppm 12/02/2024 7:51 AM EDT [facility] KLEBSIELLA PNEUMONIAE, OXYTOCA Not Detected 23.000 - 30.500 ppm 12/02/2024 7:51 AM EDT [facility] MORGANELLA MORGANII 0.000 19.961 - 24.689 ppm 12/02/2024 7:51 AM EDT [facility] MORGANELLA MORGANII Not Detected 19.961 - 24.689 ppm 12/02/2024 7:51 AM EDT [facility] PROTEUS MIRABILIS, VULGARIS 0.000 23.000 - 28.500 ppm 12/02/2024 7:51 AM EDT [facility] PROTEUS MIRABILIS, VULGARIS Not Detected 23.000 - 28.500 ppm 12/02/2024 7:51 AM EDT [facility] PSEUDOMONAS AERUGINOSA 0.000 23.000 - 28.500 ppm 12/02/2024 7:51 AM EDT [facility] PSEUDOMONAS AERUGINOSA Not Detected 23.000 - 28.500 ppm 12/02/2024 7:51 AM EDT [facility] STAPHYLOCOCCUS AUREUS 0.000 26.000 - 30.902 ppm 12/02/2024 7:51 AM EDT [facility] STAPHYLOCOCCUS AUREUS Not Detected 26.000 - 30.902 ppm 12/02/2024 7:51 AM EDT [facility] STREPTOCOCCUS AGALACTIAE (GROUP B STREP) 0.000 26.000 - 32.222 ppm 12/02/2024 7:51 AM EDT [facility] STREPTOCOCCUS AGALACTIAE (GROUP B STREP) Not Detected 26.000 - 32.222 ppm 12/02/2024 7:51 AM EDT [facility] SHAWNA ALBICANS, PARAPSILOSIS, TROPICALIS 0.000 19.961 - 30.770 ppm 12/02/2024 7:51 AM EDT [facility] SHAWNA ALBICANS, PARAPSILOSIS, TROPICALIS Not Detected 19.961 - 30.770 ppm 12/02/2024 7:51 AM EDT [facility] SHAWNA GLABRATA 0.000 23.000 - 32.138 ppm 12/02/2024 7:51 AM EDT [facility] SHAWNA GLABRATA Not Detected 23.000 - 32.138 ppm 12/02/2024 7:51 AM EDT [facility] SHAWNA KRUSEI 0.000 23.000 - 32.271 ppm 12/02/2024 7:51 AM EDT [facility] SHAWNA KRUSEI Not Detected 23.000 - 32.271 ppm 12/02/2024 7:51 AM EDT [facility] SERRATIA MARCESCENS 0.000 23.000 - 31.204 ppm 12/02/2024 7:51 AM EDT [facility] SERRATIA MARCESCENS Not Detected 23.000 - 31.204 ppm 12/02/2024 7:51 AM EDT [facility] STREPTOCOCCUS PYOGENES (GROUP A STREP) 0.000 19.961 - 24.689 ppm 12/02/2024 7:51 AM EDT [facility] STREPTOCOCCUS PYOGENES (GROUP A STREP) Not Detected 19.961 - 24.689 ppm 12/02/2024 7:51 AM EDT [facility] STAPHYLOCOCCUS EPIDERMIDIS, HAEMOLYTICUS, LUGDUNENSIS, SAPROPHYTICUS (URINA 0.000 19.961 - 24.689 ppm 12/02/2024 7:51 AM EDT [facility] STAPHYLOCOCCUS EPIDERMIDIS, HAEMOLYTICUS, LUGDUNENSIS, SAPROPHYTICUS (URINA Not Detected 19.961 - 24.689 ppm 12/02/2024 7:51 AM EDT [facility] STAPHYLOCOCCUS EPIDERMIDIS, HAEMOLYTICUS, LUGDUNENSIS, SAPROPHYTICUS (URINA 0.000 19.961 - 24.689 ppm 12/02/2024 7:51 AM EDT [facility] STAPHYLOCOCCUS EPIDERMIDIS, HAEMOLYTICUS, LUGDUNENSIS, SAPROPHYTICUS (URINA Not Detected 19.961 - 24.689 ppm 12/02/2024 7:51 AM EDT [facility] Urine 12/01/2024 12:0 1 PM EDT 12/02/2024 2:11 AM EDT us Lynn [facility] LAB BLOOD ORDERABLES Final Res ult [facility] [address] [place] [address] * Bilateral screening mammogram with tomosynthesis (02/15/2024 10:38 AM EDT) Anatomical Region Laterality Modality Breast Bilateral Mammography 02/16/2024 11:1 9 AM EDT Impressions 02/16/2024 2:16 PM EDT BIRADS 1 - Negative Follow-up: Routine Screening Mamm Board Certified Radiologists. Accredited by the ACR and FDA. MAMMOGRAPHY IS VERY IMPORTANT TO YOUR HEALTH. THE [employer] GUIDELINES RECOMMEND THAT WOMEN 40 YEARS OF AGE AND OLDER SHOULD HAVE A MAMMOGRAM EVERY YEAR. A REMINDER LETTER WILL BE SENT AT THE APPROPRIATE TIME. THIS FACILITY UTILIZES A REMINDER SYSTEM TO ENSURE ALL PATIENTS RECEIVE REMINDER NOTIFICATIONS AT THE APPROPRIATE TIME BASED ON THE RECOMMENDATIONS OF THIS EXAM. THIS INCLUDES REMINDERS FOR ROUTINE SCREENING MAMMOGRAMS, DIAGNOSTIC MAMMOGRAMS IN WHICH THE PATIENT IS ASKED TO RETURN FOR ADDITIONAL VIEWS, OR OTHER BREAST IMAGING INTERVENTIONS WHEN APPROPRIATE. THE PATIENT WILL BE PLACED IN THE APPROPRIATE REMINDER SYSTEM INCLUDING A REMINDER AT THE APPROPRIATE TIME FOR ANY PENDING ADDITIONAL VIEWS. TRANSCRIBED BY: ELECTRONICALLY SIGNED BY: Tyrese Manuel MD Narrative 02/16/2024 2:16 PM EDT EXAMINATION: BI MAMMOGRAM SCREENING TOMOSYNTHESIS BILATERAL CLINICAL HISTORY:screening COMPARISON: August 19, 2021. RESULT: Density: The breasts are almost entirely fatty Overall appearance is stable. There is no suspicious mass, asymmetry, architectural distortion, or calcification Procedure Note Tyrese Manuel MD - 02/16/2024 EXAMINATION: BI MAMMOGRAM SCREENING TOMOSYNTHESIS BILATERAL CLINICAL HISTORY:screening COMPARISON: August 19, 2021. RESULT: Density: The breasts are almost entirely fatty Overall appearance is stable. There is no suspicious mass, asymmetry, architectural distortion, orcalcification IMPRESSION: BIRADS 1 - Negative Follow-up: Routine Screening Mamm Board Certified Radiologists. Accredited by the ACR and FDA. MAMMOGRAPHY IS VERY IMPORTANT TO YOUR HEALTH. THE [employer]UIDELINES RECOMMEND THAT WOMEN 40 YEARS OF AGE AND OLDER SHOULD HAVE AMAMMOGRAM EVERY YEAR. A REMINDER LETTER WILL BE SENT AT THE APPROPRIATE TIME. THIS FACILITYUTILIZES A REMINDER SYSTEM TO ENSURE ALL PATIENTS RECEIVE REMINDERNOTIFICATIONS AT THE APPROPRIATE TIME BASED ON THE RECOMMENDATIONS OF THISEXAM. THIS INCLUDES REMINDERS FOR ROUTINE SCREENING MAMMOGRAMS, DIAGNOSTICMAMMOGRAMS IN WHICH THE PATIENT IS ASKED TO RETURN FOR ADDITIONAL VIEWS,OR OTHER BREAST IMAGING INTERVENTIONS WHEN APPROPRIATE. THE PATIENT WILLBE PLACED IN THE APPROPRIATE REMINDER SYSTEM INCLUDING A REMINDER AT THEAPPROPRIATE TIME FOR ANY PENDING ADDITIONAL VIEWS. TRANSCRIBED BY: ELECTRONICALLY SIGNED BY: Tyrese Manuel MD Lynn ORTE[facility] IMG BI PROCEDURES Final Result * THINPREP TIS PAP AND HPV MRNA E6/E7 REFLEX HPV 16,18/45 ([id number]) (06/07/2020) CLINICAL INFORMATION: None given [facility] LMP: MENOPAUSAL [facility] PREV. PAP: NONE GIVEN [facility] PREV. BX: NONE GIVEN [facility] SOURCE: Cervix [facility] STATEMENT OF ADEQUACY: SATISFACTORY FOR EVALUATION [facility] INTERPRETATION/RES ULT: SEE COMMENT [facility] Comment: Negative for intraepithelial lesion or malignancy. Atrophic pattern; predominantly parabasal cells COMMENT: SEE COMMENT [facility] Comment: This Pap test has been evaluated with computer assisted technology. Parabasal cells in smears that lack maturation due to atrophy or other hormonal reasons cannot be differentiated from transformation zone cells. Accordingly, presence or absence of endocervical or transformation zone components cannot be reported in this patient. TERRAZZO LABORER: SEE COMMENT [facility] Comment: EMP, CT(ASCP) CT screening location: [facility], [address] [place] [address], [place] [address]. COMMENT SEE COMMENT [facility] Comment: EXPLANATORY NOTE: The Pap is a screening test for cervical cancer. It is not a diagnostic test and is subject to false negative and false positive results. It is most reliable when a satisfactory sample, regularly obtained, is submitted with relevant clinical findings and history, and when the Pap result is evaluated along with historic and current clinical information. HPV MRNA E6/E7 Not Detected Not Detected [facility] Comment: This test was performed using the APTIMA HPV Assay ([employer] This assay detects E6/E7 viral messenger RNA (mRNA) from 14 high-risk HPV types (16,18,31,33,35,39,45,51,52,56,58,59,66,68). The analytical performance characteristics of this assay have been determined by [facility]. The modifications have not been cleared or approved by the FDA. This assay has been validated pursuant to the CLIA regulations and is used for clinical purposes. 06/07/2020 us Glen Dickey MD [facility] Final Result [facility] * Colonoscopy (12/01/2018 12:00 PM EDT) Anatomical Region Laterality Modality Endoscopy 12/01/2018 12:0 0 PM EDT Narrative 12/01/2018 12:00 PM EDT PERFORMED AT [facility] [facility] LOCATION:[id number] diverticulosis Procedure Note CONVERSION, GENERIC - 11/05/2022 PERFORMED AT [facility] LOCATION:[id number] diverticulosis us Arturo Lizarraga MD ENDOSCOPY PROCEDURE ORDERABLES Final Result from Last 3 Months or Most Recently Relevant to Health Maintenance Insurance [facility] MEDICARE Care Teams 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
--- OUTSIDE RECORDS SUMMARY | 2025-01-25 13:48 | XMS_ITS | Encounter Summary ---
Author Organization [facility] Address [address] [place] [address] Care Team Providers Care Member Certification Manager Name Role Phone Arturo Lizarraga MD Primary Care Provider [phone] Encounter Details Date Type Department Care Team (Latest Contact Info) Description 01/11/2025 Travel Social History Tobacco Use Types Packs/Day Years [...] on file documented as of this encounter Functional Status * Over the past 2 weeks, how often have you been bothered by any of the following problems? Question Answer Date of Assessment Author Little interest or pleasure in doing things More than half the days 01/11/2025 9:00 AM EDT Marylu Viveros LPN Feeling down, depressed, or hopeless More than half the days 01/11/2025 9:00 AM EDT Marylu Viveros LPN Patient Health Questionnaire-2 Score 4 01/11/2025 [...] usual. Not at all 01/11/2025 9:00 AM EDT Marylu Viveros LP N Thoughts that you would be better off or hurting yourself in some way Not at all 01/11/2025 9:00 AM EDT Marylu Viveros L PN Patient Health Questionnaire-9 Score 12 01/11/2025 9:00 AM EDT Marylu Viveros LPN documented as of this encounter Plan of Treatment Upcoming Encounters Date Type Department Care Team (Late st Contact Info) Description 07/17/2025 8:00 AM EST Office Visit [facility] [place] [facility] [address] [place] [address] [place] [address] Lynn Brady PA [address] [place] [address] [place] [address] documented as of this encounter Visit Diagnoses Not on filedocumented in this encounter Additional Health Concerns Assessment Noted Time PHQ-9 Depression Total Score: 12 025 9:00 AM EDT documented as of this encounter Care Teams Member Certification Manager Relationship Specialty Start Date End Date Arturo Lizarraga MD [address] [place] [address] [place] [address] PCP - General Internal Medicine 12/23/23 documented as of this encounter
--- OUTSIDE RECORDS SUMMARY | 2025-01-25 13:48 | XMS_ITS | Encounter Summary ---
Author Organization [facility] Address [address] [facility] [place] [address] Care Team Providers Care Gear Coding Machine Operator Name Role Phone Arturo Lizarraga MD Primary Care Provider [phone] Encounter Details Date Type Department Care Team (Late Contact Info) Description 01/04/2024 Abstract [facility] [place] [facility] [address] [facility] 110 [place] [phone] Arturo Lizarraga MD [address] [place] [address] [place] [address] Social History Tobacco Use Types Packs/Day Years Used Date Smoking Tobacco: Never Smokeless Tobacco: Never Alcohol Use Standard Drinks/Week Comments Not Currently 0 (1 standard drink = 0.6 oz pur e alcohol) PHQ-2 Answer Date Recorded Patient Health Questionnaire-2 Score 6 12/23/2023 Comments Unknown Sex and Gender Information Value Date Recorded Sex Assigned at Not on file Legal Sex Female 8:35 PM EDT Gender Identity Not on file Sexual Orientation Not on file documented as of this encounter Plan of Treatment Upcoming Encounters Date Type Department Care Team (Late st Contact Info) Description 07/17/2025 8:00 AM EST Office Visit [facility] [place] [facility] [address] [place] [address] [place] [address] Lynn Brady PA [address] [place] [address] [place] [address] documented as of this encounter Visit Diagnoses Not on filedocumented in this encounter Additional Health Concerns Assessment Noted Time PHQ-9 Depression Total Score: 13 07/03/ 024 9:00 AM EDT documented as of this encounter Care Teams Gear Coding Machine Operator Relationship Specialty Start Date End Date Arturo Lizarraga MD 112 [facility] 110 [place] [address] PCP - General Internal Medicine 12/23/23 documented as of this encounter
--- OUTSIDE RECORDS SUMMARY | 2025-01-25 13:48 | XMS_ITS | Encounter Summary ---
Author Organization [facility] Address [address] [place] [address] Care Team Providers Care Breaker Up Machine Operator Name Role Phone Arturo Lizarraga MD Primary Care Provider [phone] Encounter Details Date Type Department Care Team (Late st Contact Info) Description 01/13/2025 Results Follow-Up [facility] [address] [facility] 110 [place] [address] Lynn Brady PA [address] [facility] 110 [place] [address] Abnormal CBC (Primary Dx) Social History Tobacco Use Types Packs/Day Years [...] on file documented as of this encounter Miscellaneous Notes * Telephone Encounter - ANNIE TOMAS - 01/19/2025 9:36 AM EDT Patient was notified and will get the other labs completed. * Telephone Encounter - ANNIE TOMAS - 01/16/2025 2:33 PM EDT Lm for pt to CB * Telephone Encounter - Marylu Viveros LPN - 01/13/2025 11:58 AM EDT LM for pt to CB * Telephone Encounter - Marylu Viveros LPN - 01/13/2025 11:58 AM EDT ----- Message from SHANNON Fernandez sent at 01/13/2025 11:49 AM EDT ----- * Telephone Encounter - SHANNON Fernandez - 01/13/2025 11:45 AM EDT Please let pt know that her recent labs showed some very mild changes in her blood counts. Did review the results with Dr. Lizarraga. Would just recommend checking a Vitamin B12 and folate level to make sure neither are deficient. Lab ordered for her. She can have it done at her convenience. If both normal, would just plan on rechecking her CBC in 6 months. Rest of labs were normal. documented in this encounter Plan of Treatment Upcoming Encounters Date Type Department Care Team (Late st Contact Info) Description 07/17/2025 8:00 AM EST Office Visit [facility] [facility] [address] [facility] 110 [place] [address] Lynn Brady PA 112 [facility] 110 [place] [address] Scheduled Orders Name Type Priority Associated Diagnoses Orde r Schedule Folate Lab Routine Abnormal CBC Expected: 01/13/2025 (Approximate), Expires: 01/13/2026 Vitamin B12 Lab Routine Abnormal CBC Expected: 01/13/2025 (Approximate), Expires: 01/13/2026 documented as of this encounter Visit Diagnoses Diagnosis Abnormal CBC- Primary Other abnormal blood chemistry documented in this encounter Additional Health Concerns Assessment Noted Time PHQ-9 Depression Total Score: 12 025 9:00 AM EDT documented as of this encounter Care Teams Breaker Up Machine Operator Relationship Specialty Start Date End Date Arturo Lizarraga MD 112 [facility] 110 [place] [address] PCP - General Internal Medicine 12/23/23 documented as of this encounter
--- OUTSIDE RECORDS SUMMARY | 2025-01-25 13:48 | XMS_ITS | Encounter Summary ---
Author Organization [facility] Address [address] [facility] [place] [address] Care Team Providers Care Irb Compliance Coordinator Name Role Phone Arturo Lizarraga MD Primary Care Provider Encounter Details Date Type Department Care Team (Late Contact Info) Description 01/12/2025 Abstract [facility] [place] [facility] [address] [facility] 110 [place] [phone] Arturo Lizarraga MD [address] [facility] 110 [place] [address] Social History Tobacco Use Types Packs/Day Years [...] 8:00 AM EST Office Visit [facility] [place] [facility] [address] [facility] 110 [place] [phone] Lynn Brady PA [address] [place] [address] [place] [address] documented as of this encounter Visit Diagnoses Not on filedocumented in this encounter Additional Health Concerns Assessment Noted Time PHQ-9 Depression Total Score: 12 07/23/2 025 9:00 AM EDT documented as of this encounter Care Teams Irb Compliance Coordinator Relationship Specialty Start Date End Date Arturo Lizarraga MD 112 [facility] 110 [place] [address] PCP - General Internal Medicine 12/23/23 documented as of this encounter
--- OUTSIDE RECORDS SUMMARY | 2025-01-25 13:48 | XMS_ITS | Encounter Summary ---
Author Organization [facility] Address [address] [facility] [place] [address] Care Team Providers Care Business Teacher Name Role Phone Arturo Lizarraga MD Primary Care Provider [phone] Encounter Details Date Type Department Care Team (Late Contact Info) Description 01/04/2024 Abstract [facility] [place] [facility] [address] [facility] 110 [place] [phone] Arturo Lizarraga MD [address] [facility] 110 [place] [address] Social History Tobacco Use Types Packs/Day Years [...] [facility] [address] [place] [address] [place] [phone] Lynn Brady PA [address] [place] [address] [place] [address] documented as of this encounter Visit Diagnoses Not on filedocumented in this encounter Additional Health Concerns Assessment Noted Time PHQ-9 Depression Total Score: 13 07/03/ 024 9:00 AM EDT documented as of this encounter Care Teams Business Teacher Relationship Specialty Start Date End Date Arturo Lizarraga MD 112 [facility] 110 [place] [address] PCP - General Internal Medicine 12/23/23 documented as of this encounter
--- OUTSIDE RECORDS SUMMARY | 2025-01-25 13:48 | XMS_ITS | Encounter Summary ---
Author Organization [facility] Address [address] [place] [address] Care Team Providers Care Health Social Work Professor Name Role Phone Arturo Lizarraga MD Primary Care Provider [phone] Encounter Details Date Type Department Care Team (Late st Contact Info) Description 01/11/2025 Bamboo flowsheet [facility] [address] [place] [address] [place] [phone] Lynn Brady PA [address] [place] [address] Social History Tobacco Use Types Packs/Day Years [...] EST Office Visit [facility] [place] [facility] 112 [facility] 110 [place] [address] Lynn Brady PA [address] [facility] 110 [place] [address] documented as of this encounter Visit Diagnoses Not on filedocumented in this encounter Additional Health Concerns Assessment Noted Time PHQ-9 Depression Total Score: 12 025 9:00 AM EDT documented as of this encounter Care Teams Health Social Work Professor Relationship Specialty Start Date End Date Arturo Lizarraga MD 112 [facility] 110 [place] [address] PCP - General Internal Medicine 12/23/23 documented as of this encounter
--- OUTSIDE RECORDS SUMMARY | 2025-01-25 13:48 | XMS_ITS | Encounter Summary ---
Author Organization [facility] Address [address] [place] [address] Care Team Providers Care Student Services Director Name Role Phone Arturo Lizarraga MD Primary Care Provider [phone] Encounter Details Date Type Department Care Team (Latest Contact Info) Description 01/24/2025 Travel Social History Tobacco Use Types Packs/Day [...] L PN documented as of this encounter Plan of Treatment Upcoming Encounters Date Type Department Care Team (Late st Contact Info) Description 07/17/2025 8:00 AM EST Office Visit [facility] [place] [facility] [address] [place] [address] [place] [phone] Lynn Brady PA [address] [address] [place] [address] documented as of this encounter Visit Diagnoses Not on filedocumented in this encounter Additional Health Concerns Assessment Noted Time PHQ-9 Depression Total Score: 12 025 9:00 AM EDT documented as of this encounter Care Teams Student Services Director Relationship Specialty Start Date End Date Arturo Lizarraga MD 112 [facility] [address] [place] [address] PCP - General Internal Medicine 12/23/23 documented as of this encounter
--- OUTSIDE RECORDS SUMMARY | 2025-01-25 13:48 | XMS_ITS | Encounter Summary ---
Author Organization [facility] Address [address] [facility] [place] [address] Care Team Providers Care Bakery Worker Name Role Phone Arturo Lizarraga MD Primary Care Provider [phone] Encounter Details Date Type Department Care Team (Late Contact Info) Description 12/02/2024 Abstract [facility] [place] [facility] [address] [facility] 110 [place] [phone] Arturo Lizarraga MD [address] [facility] 110 [place] [address] Social History Tobacco Use Types Packs/Day Years Used Date Smoking Tobacco: Never Smokeless Tobacco: Never Alcohol Use Standard Drinks/Week Comments Not Currently 0 (1 standard drink = 0.6 oz pur e alcohol) PHQ-2 Answer Date Recorded Patient Health Questionnaire-2 Score 0 08/30/2024 Comments Unknown Sex and Gender Information Value Date Recorded Sex Assigned at Not on file Legal Sex Female 8:35 PM EDT Gender Identity Not on file Sexual Orientation Not on file documented as of this encounter Plan of Treatment Upcoming Encounters Date Type Department Care Team (Late st Contact Info) Description 07/17/2025 8:00 AM EST Office Visit [facility] [place] [facility] [address] [place] [address] [place] [address] Lynn Brady PA [address] [place] [place] [address] documented as of this encounter Visit Diagnoses Not on filedocumented in this encounter Additional Health Concerns Assessment Noted Time PHQ-9 Depression Total Score: 13 07/03/ 024 9:00 AM EDT documented as of this encounter Care Teams Bakery Worker Relationship Specialty Start Date End Date Arturo Lizarraga MD 112 [facility] 110 [place] [address] PCP - General Internal Medicine 12/23/23 documented as of this encounter
--- OUTSIDE RECORDS SUMMARY | 2025-01-25 13:48 | XMS_ITS | Encounter Summary ---
Author Organization [facility] Address [address] [facility] [place] [address] Care Team Providers Care Saw Maker Name Role Phone Arturo Lizarraga MD Primary Care Provider [phone] Encounter Details Date Type Department Care Team (Late Contact Info) Description 01/24/2025 Bamboo flowsheet [facility] [place] [facility] [address] [facility] 110 [place] [address] Lynn Brady PA [address] [facility] 110 [place] [address] Social History Tobacco Use Types Packs/Day Years [...] Visit [facility] [place] [facility] [address] [place] [address] [place] [phone] Lynn Brady PA [address] [facility] 110 [place] [address] documented as of this encounter Visit Diagnoses Not on filedocumented in this encounter Additional Health Concerns Assessment Noted Time PHQ-9 Depression Total Score: 12 025 9:00 AM EDT documented as of this encounter Care Teams Saw Maker Relationship Specialty Start Date End Date Arturo Lizarraga MD [address] [address] PCP - General Internal Medicine 12/23/23 documented as of this encounter
[2025-01-25 15:14] LABS: Folate 22.10 ng/mL (8.60-58.90)
[2025-01-26 04:07] LABS: Vitamin B12 312 pg/mL (232-1245)
== END 2025-01-25 13:34 | disposition home or self-care (01) ==
LOC: LAB 13:46
PROVIDERS: PCP Physician Assistant; Visit Provider Physician Assistant
DX: R79.89 Other specified abnormal findings of blood chemistry (principal)
CPT/HCPCS: 36415; 82607; 82746